=== PATIENT | male | born 1975 | race Caucasian/White ===

== ENCOUNTER 2023-07-17 07:44 | Outpatient (RCR) | payer OTHER, SELFPAY | END 2023-08-11 17:21 | disposition home or self-care (01) | LOC: OT 07:44 | PROVIDERS: PCP Nurse Practitioner Family; Visit Provider Nurse Practitioner Family | DX: M77.11 Lateral epicondylitis, right elbow (principal) | CPT/HCPCS: 97014; 97035; 97140; 97165 ==